=== PATIENT | female | born 1955 | race Caucasian/White ===

== ENCOUNTER 2018-12-28 15:08 | Emergency (ER) | payer OTHER ==
[~2018-12-28] VITALS: Ht 167.6 cm; Wt 85.3 kg
[~2018-12-28 15:08] MED LIST: ALBU0.0912 IH; ATA25 PO; ATOR20TA PO; ENAL20TA46 PO; HYDR1CAP PO; NAPR-54 PO
[2018-12-28 15:21] VITALS: BP 157/83
--- NOTE | 2018-12-28 15:27 | NUR ---
PATIENT AMBULATED TO LOBBY. XR ORDERED
--- NOTE | 2018-12-28 18:28 | NUR ---
PATIENT AMBULATED TO BED #1
[2018-12-28] MEDS ORDERED: KETOROLAC 60 MG/2 ML VIAL IM ONE (19:05)
--- NOTE | 2018-12-28 19:15 | NUR ---
PT BIB FAMILY C/O LEFT WRIST AND RIGHT HAND PAIN S/P FALL. PT STATES SHE MISSED A STEP STAIRS AND FELL. RT. PINKY PAIN,LT. WRIST PAIN. DENIES VOMITING,DENIES LOC.. SMALL CUT UPPER LIP/CHIPPED UPPER TOOTH. PT IN BED; BED IN LOWER LOCKED POSITION. ER MD AWARE. HX: HTN,DM RX: METFORMIN,NORCO.
--- NOTE | 2018-12-28 19:20 | NUR ---
PT R 4TH AND 5TH FINGERS SPLINTED VIA NAYELI TAPE. +CSM
--- NOTE | 2018-12-28 19:21 | NUR ---
PT L WRIST PLACED IN WRIST IMMOBILIZER
--- NOTE | 2018-12-28 19:22 | NUR ---
PT L ARM PLACED IN SHOULDER IMMOBILIZER SIZED MEDIUM. +CSM
--- NOTE | 2018-12-28 19:29 | NUR ---
NAYELI TAPE APPLIED TO RIGHT HAND PINK FINGER; LEFT WRIST AND FOREARM SPLIT. SKIN WARM AND COLOR WNL AROUND SPLINT AND TAPE; NO SWELLING NOTED. RADIAL PULSES WNL BL. CAP REFIL <3. PT HAS ACTIVE ROM TO PHALANGES.
[2018-12-28 19:35] VITALS: BP 148/80
--- NOTE | 2018-12-28 19:35 | NUR ---
Patient discharged with v/s stable. Written and verbal after care instructions given and explained. Patient alert, oriented and verbalized understanding of instructions. Ambulatory with steady gait. All questions addressed prior to discharge. ID band removed. Patient advised to follow up with PMD. Rx of TRAMADOL AND VOLTAREN given. Patient educated on indication of medication including possible reaction and side effects. Opportunity to ask questions provided and answered.
== END 2018-12-28 19:35 | disposition home or self-care (01) ==
LOC: MED 15:08
DX: S62.616A Displaced fracture of proximal phalanx of right little finger, initial encounter for closed fracture (principal); S63.502A Unspecified sprain of left wrist, initial encounter; J45.909 Unspecified asthma, uncomplicated; E11.9 Type 2 diabetes mellitus without complications; I10 Essential (primary) hypertension; F17.210 Nicotine dependence, cigarettes, uncomplicated; Z79.899 Other long term (current) drug therapy; W10.9XXA Fall (on) (from) unspecified stairs and steps, initial encounter; Y93.89 Activity, other specified; Y92.89 Other specified places as the place of occurrence of the external cause; Y99.8 Other external cause status
CPT/HCPCS: 29125; 29130; 73110; 73140; 96372; 99283; J1885